=== PATIENT | female | born 1945 | race Caucasian/White ===

== ENCOUNTER 2017-08-07 05:56 | Inpatient (IN) | payer OTHER ==
[2017-08-04 11:14] LABS: Basophils # (auto) 0.1 uL; Basophils % (auto) 0.8 % (0.0-2.0); Eosinophils # (auto) 0.1 uL; Eosinophils % (auto) 1.1 % (0.0-7.0); Hematocrit 39.2 % (36.0-46.0); Hemoglobin 12.8 g/dL (12.2-16.2); Lymphocytes # (auto) 1.6 uL; Lymphocytes % (auto) 20.6 % (10.0-50.0); Mean Corpuscular Hemoglobin 31.3 pg (28.0-32.0); Mean Corpuscular Hgb Conc. 32.7 g/dL (32.0-36.0); Mean Corpuscular Volume 95.5 fL (80.0-100.0); Monocytes # (auto) 0.7 uL; Monocytes % (auto) 9.4 % (0.0-12.0); Neutrophils # (auto) 5.3 uL; Neutrophils % (auto) 68.1 % (37.0-80.0); Nucleated Red Blood Cells % 0.1 %; Platelet Count (auto) 259 10^3/uL (140-450); Red Blood Cells 4.11 10^6/uL (4.0-5.20); Red Cell Distribution Width 14.4 % (11.8-14.3); White Blood Cell 7.8 10^3/uL (4.4-10.8)
[2017-08-04 11:28] LABS: INR 0.94 (0.9-1.15); Partial Thromboplastin Time 28.7 sec (22.64-33.71); Prothrombin Time 10.2 sec (9.37-12.3)
[2017-08-04 11:39] LABS: Albumin 3.7 g/dL (3.4-5.0); BUN/Creatinine Ratio 23.3; Bilirubin, Total 0.3 mg/dL (0.2-1.0); Calcium 9.1 mg/dL (8.5-10.1); Potassium 4.2 mmol/L (3.5-5.1); Total Protein 7.8 g/dL (6.4-8.2)
[2017-08-04 12:07] LABS: Urine Bacteria NONE SEEN /hpf (None Seen); Urine Blood Negative /uL (Negative); Urine Specific Gravity 1.023 (1.001-1.035); Urine WBC 5 /hpf (0 - 5)
[~2017-08-07] VITALS: Ht 180.3 cm; Wt 125.2 kg
[~2017-08-07 05:56] MED LIST: AMLO5TAB2 PO; ASPI81CH43 PO; BACL10TA PO; GABA300C10 PO; HYDR-531 PO; IBUP600T27 PO; LEVO125T7 PO; LISI40TA PO; METO50TA7 PO; SIMV80TA73 PO
[2017-08-07] MEDS ORDERED: BACITRACIN INJ 50000 UNIT VIAL ONE (06:34)
[2017-08-07] MEDS ORDERED: ceFAZolin 1GM/50ML 50 ML IV ONE (06:39)
[2017-08-07] MEDS ORDERED: LIDOCAINE 1% HCL (LOCAL ANESTH.) INJ 20ML MDV ONE (07:33)
[2017-08-07] MEDS ORDERED: ROPIVACAINE 0.5% (5MG/ML) 20ML AMPULE IJ ONE (07:33)
[2017-08-07] MEDS ORDERED: SUCCINYLCHOLINE CHLORIDE 20 MG/ML 10ML VIAL IV ONE (07:33)
[2017-08-07] MEDS ORDERED: LIDOCAINE W/ EPINEPHRINE 2% INJ 20ML VIAL ONE (07:33)
[2017-08-07] MEDS ORDERED: ETOMIDATE (2MG/ML) 20ML VIAL IV ONE (07:39)
[2017-08-07] MEDS ORDERED: ROCURONIUM 10MG/ML 10ML VIAL IV ONE (07:41)
[2017-08-07] MEDS ORDERED: METOCLOPRAMIDE HCL 5MG/ml INJ 2ml VIAL ONE (07:44)
[2017-08-07] MEDS ORDERED: MIDAZOLAM HCL 1MG/1ML-2 ML VIAL ONE (07:44)
[2017-08-07] MEDS ORDERED: fentaNYL CITRATE 100 MCG/2 ML VL ONE (08:07)
[2017-08-07] MEDS ORDERED: ESMOLOL HCL 10 ML IV ONE (08:08)
[2017-08-07] MEDS ORDERED: ceFAZolin 1GM VL ONE (08:14)
[2017-08-07] MEDS ORDERED: ePHEDrine SULFATE 50 MG/ML AMP IV PRN (08:30)
[2017-08-07] MEDS ORDERED: NALOXONE HCL 0.4 MG/ML VIAL IV PRN (08:30)
[2017-08-07] MEDS ORDERED: HYDROmorphone HCL 2 MG/ML VL IV PRN ×3 (08:30→17:45)
[2017-08-07] MEDS ORDERED: hydrALAZINE HCL 20 MG/ML VL IV PRN (08:30)
[2017-08-07] MEDS ORDERED: ONDANSETRON HCL 4 MG/2 ML VIAL IV ONE (08:30)
[2017-08-07] MEDS ORDERED: KETOROLAC TROMETH 30 MG/ML 1ML VIAL ONE (08:49)
[2017-08-07] MEDS ORDERED: GLYCOPYRROLATE 0.2 MG/ML 1ML VIAL ONE (09:27)
[2017-08-07] MEDS ORDERED: NEOSTIGMINE 1 MG/ML INJ (10mg/10ML VIAL) ONE (09:28)
[2017-08-07] MEDS: HYDROmorphone HCL 2 MG/ML VL IV PRN ×4 (09:57→20:40)
[2017-08-07] MEDS: LACTATED RINGER'S 1,000 ML IV SCH ×2 (09:58→20:35)
[2017-08-07] MEDS: ONDANSETRON HCL 4 MG/2 ML VIAL IV PRN (09:59)
[2017-08-07] MEDS ORDERED: NITROGLYCERIN 0.4 MG SL TAB SL PRN (10:00)
[2017-08-07] MEDS: ceFAZolin 1GM/50ML 50 ML IV SCH ×2 (13:29→18:18)
[2017-08-07] MEDS: DOCUSATE SOD 100 MG CAP PO SCH ×2 (13:30→21:37)
[2017-08-07] MEDS: oxyCODONE ER 10 MG TAB PO SCH ×2 (13:30→21:49)
[2017-08-07] MEDS: ENOXAPARIN SOD 30 MG/0.3 ML SYRINGE SC SCH ×2 (13:31→21:49)
[2017-08-07 22:00] VITALS: BP 98/56
[2017-08-08] MEDS: ceFAZolin 1GM/50ML 50 ML IV SCH
[2017-08-08] MEDS: HYDROmorphone HCL 2 MG/ML VL IV PRN ×5 (00:14→17:36)
[2017-08-08] MEDS: ONDANSETRON HCL 4 MG/2 ML VIAL IV PRN ×5 (00:23→20:00)
[2017-08-08 05:03] VITALS: BP 119/83
[2017-08-08] MEDS: LACTATED RINGER'S 1,000 ML IV SCH ×2 (05:51→15:58)
[2017-08-08 07:29] LABS: Basophils # (auto) 0 uL; Basophils % (auto) 0.1 % (0.0-2.0); Eosinophils # (auto) 0 uL; Hematocrit 28.2 % (36.0-46.0); Hemoglobin 9.5 g/dL (12.2-16.2); Lymphocytes # (auto) 0.7 uL; Lymphocytes % (auto) 7.5 % (10.0-50.0); Mean Corpuscular Hemoglobin 31.9 pg (28.0-32.0); Mean Corpuscular Hgb Conc. 33.6 g/dL (32.0-36.0); Monocytes # (auto) 1.2 uL; Monocytes % (auto) 12.7 % (0.0-12.0); Neutrophils # (auto) 7.5 uL; Neutrophils % (auto) 79.7 % (37.0-80.0); Platelet Count (auto) 187 10^3/uL (140-450); Red Blood Cells 2.97 10^6/uL (4.0-5.20); Red Cell Distribution Width 14.1 % (11.8-14.3); White Blood Cell 9.4 10^3/uL (4.4-10.8)
[2017-08-08 07:51] LABS: BUN/Creatinine Ratio 18.8; Bilirubin, Total 0.6 mg/dL (0.2-1.0); Calcium 8.3 mg/dL (8.5-10.1); Potassium 4.7 mmol/L (3.5-5.1); Total Protein 6.4 g/dL (6.4-8.2)
[2017-08-08 08:00] VITALS: BP 109/94
[2017-08-08] MEDS: DOCUSATE SOD 100 MG CAP PO SCH ×2 (08:41→21:39)
[2017-08-08] MEDS: oxyCODONE ER 10 MG TAB PO SCH ×2 (08:41→21:39)
[2017-08-08] MEDS: ENOXAPARIN SOD 30 MG/0.3 ML SYRINGE SC SCH ×2 (08:41→21:40)
[2017-08-08 09:00] VITALS: BP 109/44
[2017-08-08 12:00] VITALS: BP 152/48
[2017-08-08] MEDS: HYDROcodone-ACET 10/325MG TAB PO PRN (13:42)
[2017-08-08 16:57] VITALS: BP 152/69
[2017-08-08] MEDS ORDERED: METOPROLOL SUCCINATE XL 50 MG TAB PO ONE (18:30)
[2017-08-08] MEDS ORDERED: amLODIPine BESYLATE 5 MG TAB PO ONE (18:30)
[2017-08-08] MEDS ORDERED: LISINOPRIL 20 MG TAB PO ONE (18:30)
[2017-08-08] MEDS ORDERED: FAMOTIDINE 20 MG TAB ONE (18:55)
[2017-08-08] MEDS: FAMOTIDINE 20 MG TAB PO SCH (18:56)
[2017-08-08] MEDS: ATORVASTATIN 20 MG TAB PO SCH (21:39)
[2017-08-08 21:41] VITALS: BP 146/78
[2017-08-09] MEDS ORDERED: PROMETHAZINE HCL 25 MG/ML 1ML IV ONE (00:15)
[2017-08-09] MEDS: LACTATED RINGER'S 1,000 ML IV SCH ×3 (01:58→21:51)
[2017-08-09] MEDS ORDERED: HYDROmorphone HCL 2 MG/ML VL ONE (03:52)
[2017-08-09] MEDS: ONDANSETRON HCL 4 MG/2 ML VIAL IV PRN (03:57)
[2017-08-09] MEDS: HYDROmorphone HCL 2 MG/ML VL IV PRN (03:57)
[2017-08-09 05:01] VITALS: BP 116/51
[2017-08-09] MEDS: LEVOTHYROXINE SODIUM 50 MCG TAB PO SCH (06:27)
[2017-08-09 07:55] LABS: BUN/Creatinine Ratio 17.3; Calcium 8.8 mg/dL (8.5-10.1); Potassium 4.5 mmol/L (3.5-5.1)
[2017-08-09 08:00] VITALS: BP 109/44
[2017-08-09] MEDS: FAMOTIDINE 20 MG TAB PO SCH (08:28)
[2017-08-09] MEDS: DOCUSATE SOD 100 MG CAP PO SCH ×2 (08:29→21:42)
[2017-08-09] MEDS: ENOXAPARIN SOD 30 MG/0.3 ML SYRINGE SC SCH ×2 (08:29→21:43)
[2017-08-09 09:05] VITALS: BP 111/64
[2017-08-09 09:17] LABS: Hematocrit 27.5 % (36.0-46.0); Hemoglobin 8.9 g/dL (12.2-16.2)
[2017-08-09] MEDS: oxyCODONE ER 10 MG TAB PO SCH ×2 (09:42→21:43)
[2017-08-09] MEDS: amLODIPine BESYLATE 5 MG TAB PO SCH (09:43)
[2017-08-09] MEDS: METOPROLOL SUCCINATE XL 50 MG TAB PO SCH (09:45)
[2017-08-09] MEDS: LISINOPRIL 20 MG TAB PO SCH (09:46)
[2017-08-09] MEDS: HYDROcodone-ACET 10/325MG TAB PO PRN ×2 (10:39→20:09)
[2017-08-09 13:04] VITALS: BP 94/51
[2017-08-09] MEDS: PROMETHAZINE HCL 25 MG/ML 1ML IV PRN (15:24)
[2017-08-09 17:22] VITALS: BP 123/55
[2017-08-09] MEDS: ATORVASTATIN 20 MG TAB PO SCH (21:42)
[2017-08-09 22:51] VITALS: BP 109/49
[2017-08-10 04:57] VITALS: BP 107/57
[2017-08-10] MEDS: LEVOTHYROXINE SODIUM 50 MCG TAB PO SCH (06:21)
[2017-08-10] MEDS: HYDROcodone-ACET 10/325MG TAB PO PRN ×3 (07:58→15:52)
[2017-08-10 08:00] VITALS: BP 116/56
[2017-08-10] MEDS: LISINOPRIL 20 MG TAB PO SCH (10:00)
[2017-08-10] MEDS: amLODIPine BESYLATE 5 MG TAB PO SCH (10:28)
[2017-08-10] MEDS: DOCUSATE SOD 100 MG CAP PO SCH ×2 (10:28→21:55)
[2017-08-10] MEDS: FAMOTIDINE 20 MG TAB PO SCH (10:29)
[2017-08-10] MEDS: oxyCODONE ER 10 MG TAB PO SCH ×2 (10:29→21:55)
[2017-08-10] MEDS: ENOXAPARIN SOD 30 MG/0.3 ML SYRINGE SC SCH ×2 (10:29→21:54)
[2017-08-10] MEDS: METOPROLOL SUCCINATE XL 50 MG TAB PO SCH (10:29)
[2017-08-10] MEDS: PROMETHAZINE HCL 25 MG/ML 1ML IV PRN (10:50)
[2017-08-10 10:54] LABS: Hemoglobin 8.2 g/dL (12.2-16.2)
[2017-08-10 10:57] LABS: Hematocrit 24.1 % (36.0-46.0)
[2017-08-10 13:00] VITALS: BP 111/62
[2017-08-10 16:53] VITALS: BP 102/55
[2017-08-10] MEDS: ATORVASTATIN 20 MG TAB PO SCH (21:55)
[2017-08-10 22:00] VITALS: BP 104/46
[2017-08-11] VITALS (7 sets, daily range): BP systolic 111–132; BP diastolic 40–63
[2017-08-11] MEDS: HYDROcodone-ACET 10/325MG TAB PO PRN ×5 (03:51→18:45)
[2017-08-11] MEDS: LEVOTHYROXINE SODIUM 50 MCG TAB PO SCH (06:19)
[2017-08-11] MEDS: METOPROLOL SUCCINATE XL 50 MG TAB PO SCH (09:28)
[2017-08-11] MEDS: oxyCODONE ER 10 MG TAB PO SCH ×2 (09:28→22:08)
[2017-08-11] MEDS: FAMOTIDINE 20 MG TAB PO SCH (09:28)
[2017-08-11] MEDS: LISINOPRIL 20 MG TAB PO SCH (09:29)
[2017-08-11] MEDS: ENOXAPARIN SOD 30 MG/0.3 ML SYRINGE SC SCH ×2 (09:29→22:09)
[2017-08-11] MEDS: ASPirin 81 mg TAB PO SCH (09:29)
[2017-08-11] MEDS: DOCUSATE SOD 100 MG CAP PO SCH ×2 (09:29→22:10)
[2017-08-11] MEDS: amLODIPine BESYLATE 5 MG TAB PO SCH (09:30)
[2017-08-11] MEDS: ATORVASTATIN 20 MG TAB PO SCH (22:09)
[2017-08-12 04:59] VITALS: BP 154/79
[2017-08-12] MEDS: HYDROcodone-ACET 10/325MG TAB PO PRN ×5 (05:01→18:53)
[2017-08-12] MEDS: LEVOTHYROXINE SODIUM 50 MCG TAB PO SCH (06:30)
[2017-08-12 09:00] VITALS: BP 147/68
[2017-08-12] MEDS: ENOXAPARIN SOD 30 MG/0.3 ML SYRINGE SC SCH ×2 (09:12→21:14)
[2017-08-12] MEDS: METOPROLOL SUCCINATE XL 50 MG TAB PO SCH (09:13)
[2017-08-12] MEDS: DOCUSATE SOD 100 MG CAP PO SCH ×2 (09:14→21:14)
[2017-08-12] MEDS: LISINOPRIL 20 MG TAB PO SCH (09:14)
[2017-08-12] MEDS: FAMOTIDINE 20 MG TAB PO SCH (09:15)
[2017-08-12] MEDS: ASPirin 81 mg TAB PO SCH (09:15)
[2017-08-12] MEDS: oxyCODONE ER 10 MG TAB PO SCH ×2 (09:15→21:14)
[2017-08-12] MEDS: amLODIPine BESYLATE 5 MG TAB PO SCH (09:15)
[2017-08-12] MEDS ORDERED: MILK OF MAGNESIA 30ML SUSP PO ONE (12:45)
[2017-08-12] MEDS ORDERED: FLEET ENEMA(ADULT) 135 ML PR ONE (12:45)
[2017-08-12 13:00] VITALS: BP 146/72
[2017-08-12] MEDS ORDERED: BISACODYL 10 MG RECT SUPP PR ONE (15:30)
[2017-08-12 16:59] VITALS: BP 161/69
[2017-08-12] MEDS: ATORVASTATIN 20 MG TAB PO SCH (21:14)
[2017-08-12 22:00] VITALS: BP 141/55
[2017-08-13 05:00] VITALS: BP 116/74
[2017-08-13] MEDS: LEVOTHYROXINE SODIUM 50 MCG TAB PO SCH (06:13)
[2017-08-13] MEDS: HYDROcodone-ACET 10/325MG TAB PO PRN ×2 (08:52→18:36)
[2017-08-13 10:06] VITALS: BP 163/76
[2017-08-13] MEDS: DOCUSATE SOD 100 MG CAP PO SCH ×2 (10:42→21:11)
[2017-08-13] MEDS: ASPirin 81 mg TAB PO SCH (10:42)
[2017-08-13] MEDS: amLODIPine BESYLATE 5 MG TAB PO SCH (10:43)
[2017-08-13] MEDS: LISINOPRIL 20 MG TAB PO SCH (10:43)
[2017-08-13] MEDS: MILK OF MAGNESIA 30ML SUSP PO SCH (10:44)
[2017-08-13] MEDS: METOPROLOL SUCCINATE XL 50 MG TAB PO SCH (10:44)
[2017-08-13] MEDS: oxyCODONE ER 10 MG TAB PO SCH ×2 (10:44→21:11)
[2017-08-13] MEDS: FAMOTIDINE 20 MG TAB PO SCH (10:44)
[2017-08-13] MEDS: ENOXAPARIN SOD 30 MG/0.3 ML SYRINGE SC SCH ×2 (10:44→21:10)
[2017-08-13 12:30] VITALS: BP 161/72
[2017-08-13 16:52] VITALS: BP 150/63
[2017-08-13] MEDS: ATORVASTATIN 20 MG TAB PO SCH (21:10)
[2017-08-13 22:00] VITALS: BP 123/54
[2017-08-14] MEDS: HYDROcodone-ACET 10/325MG TAB PO PRN ×4 (02:13→19:49)
[2017-08-14 05:05] VITALS: BP 140/50
[2017-08-14] MEDS: LEVOTHYROXINE SODIUM 50 MCG TAB PO SCH (06:09)
[2017-08-14 08:00] VITALS: BP 137/60
[2017-08-14 09:00] VITALS: BP 137/60
[2017-08-14] MEDS: METOPROLOL SUCCINATE XL 50 MG TAB PO SCH (10:10)
[2017-08-14] MEDS: MILK OF MAGNESIA 30ML SUSP PO SCH (10:10)
[2017-08-14] MEDS: DOCUSATE SOD 100 MG CAP PO SCH ×2 (10:10→21:21)
[2017-08-14] MEDS: ENOXAPARIN SOD 30 MG/0.3 ML SYRINGE SC SCH ×2 (10:11→21:21)
[2017-08-14] MEDS: LISINOPRIL 20 MG TAB PO SCH (10:11)
[2017-08-14] MEDS: ASPirin 81 mg TAB PO SCH (10:11)
[2017-08-14] MEDS: FAMOTIDINE 20 MG TAB PO SCH (10:11)
[2017-08-14] MEDS: oxyCODONE ER 10 MG TAB PO SCH ×2 (10:12→21:21)
[2017-08-14] MEDS: amLODIPine BESYLATE 5 MG TAB PO SCH (10:12)
[2017-08-14 13:43] VITALS: BP 141/58
[2017-08-14 17:02] VITALS: BP 152/66
[2017-08-14] MEDS: ATORVASTATIN 20 MG TAB PO SCH (21:21)
[2017-08-14 22:43] VITALS: BP 132/60
[2017-08-15] MEDS: LEVOTHYROXINE SODIUM 50 MCG TAB PO SCH (06:13)
[2017-08-15] MEDS: HYDROcodone-ACET 10/325MG TAB PO PRN ×2 (06:14→13:59)
[2017-08-15 06:20] VITALS: BP 159/78
[2017-08-15 08:00] VITALS: BP 93/51
[2017-08-15 09:00] VITALS: BP 93/51
[2017-08-15] MEDS: MILK OF MAGNESIA 30ML SUSP PO SCH (09:46)
[2017-08-15] MEDS: DOCUSATE SOD 100 MG CAP PO SCH ×2 (09:47→21:31)
[2017-08-15] MEDS: FAMOTIDINE 20 MG TAB PO SCH (09:47)
[2017-08-15] MEDS: ASPirin 81 mg TAB PO SCH (09:47)
[2017-08-15] MEDS: oxyCODONE ER 10 MG TAB PO SCH ×2 (09:49→21:31)
[2017-08-15] MEDS: ENOXAPARIN SOD 30 MG/0.3 ML SYRINGE SC SCH ×2 (09:49→21:31)
[2017-08-15] MEDS: amLODIPine BESYLATE 5 MG TAB PO SCH (09:55)
[2017-08-15] MEDS: METOPROLOL SUCCINATE XL 50 MG TAB PO SCH (09:55)
[2017-08-15] MEDS: LISINOPRIL 20 MG TAB PO SCH (09:56)
[2017-08-15 13:00] VITALS: BP 105/85
[2017-08-15 17:00] VITALS: BP 145/52
[2017-08-15] MEDS: ATORVASTATIN 20 MG TAB PO SCH (21:31)
[2017-08-15 22:00] VITALS: BP 143/67
[2017-08-16 05:00] VITALS: BP 143/68
[2017-08-16] MEDS: LEVOTHYROXINE SODIUM 50 MCG TAB PO SCH (06:30)
[2017-08-16 08:00] VITALS: BP 149/71
[2017-08-16 09:00] VITALS: BP 149/71
[2017-08-16] MEDS: DOCUSATE SOD 100 MG CAP PO SCH ×2 (09:26→21:30)
[2017-08-16] MEDS: ASPirin 81 mg TAB PO SCH (09:27)
[2017-08-16] MEDS: METOPROLOL SUCCINATE XL 50 MG TAB PO SCH (09:27)
[2017-08-16] MEDS: LISINOPRIL 20 MG TAB PO SCH (09:28)
[2017-08-16] MEDS: amLODIPine BESYLATE 5 MG TAB PO SCH (09:29)
[2017-08-16] MEDS: FAMOTIDINE 20 MG TAB PO SCH (09:29)
[2017-08-16] MEDS: MILK OF MAGNESIA 30ML SUSP PO SCH (09:30)
[2017-08-16] MEDS: oxyCODONE ER 10 MG TAB PO SCH ×2 (09:30→21:31)
[2017-08-16] MEDS: ENOXAPARIN SOD 30 MG/0.3 ML SYRINGE SC SCH ×2 (09:30→21:30)
[2017-08-16] MEDS: HYDROcodone-ACET 10/325MG TAB PO PRN (11:56)
[2017-08-16 13:00] VITALS: BP 148/72
[2017-08-16 17:00] VITALS: BP 147/55
[2017-08-16 21:30] VITALS: BP 121/58
[2017-08-16] MEDS: ATORVASTATIN 20 MG TAB PO SCH (21:31)
[2017-08-17 05:00] VITALS: BP 152/67
[2017-08-17] MEDS: LEVOTHYROXINE SODIUM 50 MCG TAB PO SCH (06:24)
[2017-08-17] MEDS: HYDROcodone-ACET 10/325MG TAB PO PRN (06:26)
[2017-08-17 09:08] VITALS: BP 120/69
[2017-08-17] MEDS: DOCUSATE SOD 100 MG CAP PO SCH (09:36)
[2017-08-17] MEDS: oxyCODONE ER 10 MG TAB PO SCH (09:37)
[2017-08-17] MEDS: FAMOTIDINE 20 MG TAB PO SCH (09:38)
[2017-08-17] MEDS: LISINOPRIL 20 MG TAB PO SCH (09:38)
[2017-08-17] MEDS: METOPROLOL SUCCINATE XL 50 MG TAB PO SCH (09:39)
[2017-08-17] MEDS: amLODIPine BESYLATE 5 MG TAB PO SCH (09:40)
[2017-08-17] MEDS: ASPirin 81 mg TAB PO SCH (09:40)
[2017-08-17] MEDS: ENOXAPARIN SOD 30 MG/0.3 ML SYRINGE SC SCH (09:41)
[2017-08-17] MEDS: MILK OF MAGNESIA 30ML SUSP PO SCH (09:42)
[2017-08-17 12:33] VITALS: BP 119/69
[2017-08-17 15:16] VITALS: BP 126/56
== END 2017-08-17 16:05 | DRG 470 ==
LOC: SUR 05:56 → WEST WING 05:57 → CENTRAL 17:22
PROVIDERS: ADMIT Orthopaedic Surgery; ATTEND Orthopaedic Surgery
PROC: 0SRD0J9 Replacement of Left Knee Joint with Synthetic Substitute, Cemented, Open Approach (ICD-10-PCS; principal; 2017-08-07 07:10)
DX: M17.12 Unilateral primary osteoarthritis, left knee (principal); J44.9 Chronic obstructive pulmonary disease, unspecified; M24.562 Contracture, left knee; M24.60 Ankylosis, unspecified joint; G89.29 Other chronic pain; K59.03 Drug induced constipation; T40.605A Adverse effect of unspecified narcotics, initial encounter
CPT/HCPCS: 36415; 73562; 80048; 80053; 81001; 85014; 85018; 85025; 85610; 85730; 86850; 86900; 86901; 97110; 97116; 97163; 97530; J0330; J0690; J1885; J2001; J2250; J2405

== ENCOUNTER 2019-06-04 15:25 | Inpatient (IN) | payer OTHER ==
[~2019-06-04] VITALS: Ht 180.3 cm; Wt 111.6 kg
[~2019-06-04 15:25] MED LIST changes: +AMLO5TAB15 PO; -AMLO5TAB2 PO; +METO-6 PO; -METO50TA7 PO
[2019-06-04] MEDS ORDERED: SODIUM CHLORIDE 0.9% 1,000 ML IV ONE (15:59)
[2019-06-04] MEDS ORDERED: ONDANSETRON HCL 4 MG/2 ML VIAL IV ONE ×2 (16:00→20:30)
[2019-06-04] MEDS ORDERED: HYDROmorphone HCL 2 MG/ML VL IV ONE ×2 (16:00→20:30)
[2019-06-04 16:45] LABS: INR 1.01 (0.9-1.15); Partial Thromboplastin Time 27.3 sec (23.64-32.05)
[2019-06-04 16:48] LABS: Albumin 3.3 g/dL (3.4-5.0); Anion Gap 9 (5-15); Blood Urea Nitrogen 23 mg/dL (7-18); Carbon Dioxide 21 mmol/L (21-32); Chloride 112 mmol/L (98-107); Glucose 115 mg/dL (74-106); Potassium 3.7 mmol/L (3.5-5.1); Sodium 142 mmol/L (136-145)
[2019-06-04 16:52] LABS: Basophils # (auto) 0.1 uL; Basophils % (auto) 0.7 % (0.0-2.0); Eosinophils # (auto) 0.1 uL; Eosinophils % (auto) 1.1 % (0.0-7.0); Hemoglobin 12.4 g/dL (12.2-16.2); Lymphocytes # (auto) 1.5 uL; Lymphocytes % (auto) 17.7 % (10.0-50.0); Mean Corpuscular Hemoglobin 31.7 pg (28.0-32.0); Mean Corpuscular Hgb Conc. 33.6 g/dL (32.0-36.0); Mean Corpuscular Volume 94.3 fL (80.0-100.0); Monocytes # (auto) 0.7 uL; Monocytes % (auto) 8.6 % (0.0-12.0); Neutrophils # (auto) 6.1 uL; Neutrophils % (auto) 71.9 % (37.0-80.0); Platelet Count (auto) 261 10^3/uL (140-450); Red Blood Cells 3.93 10^6/uL (4.0-5.20); Red Cell Distribution Width 15.3 % (11.8-14.3); White Blood Cell 8.5 10^3/uL (4.4-10.8)
[2019-06-04 16:54] LABS: Alanine Aminotransferase 23 U/L (13-56); Alkaline Phosphatase 84 U/L (45-117); Aspartate Aminotransferase 17 U/L (15-37); BUN/Creatinine Ratio 20.4; Bilirubin, Total 0.2 mg/dL (0.2-1.0); GFR African American 61 mL/min; GFR Non-African American 50 mL/min
[2019-06-04 18:13] LABS: Urine Bacteria FEW /hpf (None Seen); Urine Blood Negative /uL (Negative); Urine Mucus FEW (None Seen); Urine Specific Gravity 1.018 (1.001-1.035); Urine WBC 1 /hpf (0 - 5)
[2019-06-04] MEDS ORDERED: HYDROcodone-ACET 7.5/325MG TAB PO ONE (18:15)
[2019-06-04] MEDS: HYDROmorphone HCL 2 MG/ML VL IV PRN ×2 (18:41→20:40)
[2019-06-04] MEDS ORDERED: HYDROcodone-ACET 5/325MG TAB PO PRN (21:00)
[2019-06-04] MEDS ORDERED: TEMAZEPAM 15 MG CAP PO PRN (21:00)
[2019-06-04] MEDS ORDERED: ACETAMINOPHEN 325 MG TAB PO PRN (21:00)
[2019-06-04] MEDS ORDERED: LORazepam 2MG/ML-1ML VIAL IV ONE (21:15)
[2019-06-04] MEDS ORDERED: ATORVASTATIN 20 MG TAB PO SCH (22:00)
[2019-06-04 22:35] VITALS: BP 146/57
[2019-06-04] MEDS: GABAPENTIN 300 MG CAP PO SCH (22:51)
[2019-06-05] MEDS: ONDANSETRON HCL 4 MG/2 ML VIAL IV PRN ×2 (02:11→08:54)
[2019-06-05] MEDS: MORPHINE SULFATE 4 MG/ML SYR/VIAL IV PRN ×2 (02:12→08:54)
--- NOTE | 2019-06-05 02:12 | NUR ---
Rounds Patient awake and alert. No S/S of distress/SOB, c/o nausea and leg pain, medicated as ordered. Will continue to monitor changes q1hr and PRN.
--- NOTE | 2019-06-05 02:36 | NUR ---
[facility] admit from ER [facility] admitted to [facility]. Patient oriented to Mel Baird, RN primary RN, unit, room, bed, and unit policies regarding patient care and visiting hours. Patient weighed by bedscale and encouraged to call if they need something. All questions and concerns addressed, patient verbalized understanding. Patient alert x4, connected to 2L NC, daughter at bedside. Note:
[2019-06-05 04:57] VITALS: BP 154/46
[2019-06-05] MEDS: GABAPENTIN 300 MG CAP PO SCH (05:25)
[2019-06-05 06:46] LABS: Basophils # (auto) 0 uL; Eosinophils # (auto) 0 uL; Hematocrit 33.7 % (36.0-46.0); Hemoglobin 11.1 g/dL (12.2-16.2); Lymphocytes # (auto) 0.7 uL; Lymphocytes % (auto) 5.6 % (10.0-50.0); Mean Corpuscular Hemoglobin 31.5 pg (28.0-32.0); Mean Corpuscular Volume 95.5 fL (80.0-100.0); Monocytes # (auto) 0.7 uL; Neutrophils # (auto) 10.7 uL; Neutrophils % (auto) 88.4 % (37.0-80.0); Platelet Count (auto) 227 10^3/uL (140-450); Red Blood Cells 3.53 10^6/uL (4.0-5.20); Red Cell Distribution Width 15.1 % (11.8-14.3); White Blood Cell 12.1 10^3/uL (4.4-10.8)
[2019-06-05] MEDS ORDERED: SIMV80TA73 PO (06:54)
[2019-06-05] MEDS ORDERED: PERCOT PO (06:54)
[2019-06-05] MEDS ORDERED: HYDR50TA15 PO (06:54)
[2019-06-05] MEDS ORDERED: ALBUAER3 IN (06:54)
[2019-06-05] MEDS ORDERED: LEVO112T4 PO (06:54)
[2019-06-05] MEDS ORDERED: TIOT17SP IN (06:54)
[2019-06-05 06:55] LABS: BUN/Creatinine Ratio 20.2; Calcium 8.6 mg/dL (8.5-10.1)
[2019-06-05] MEDS ORDERED: LEVOTHYROXINE SODIUM 50 MCG TAB PO SCH (07:00)
[2019-06-05 09:00] VITALS: BP 158/58
[2019-06-05] MEDS ORDERED: METOPROLOL SUCCINATE XL 50 MG TAB PO SCH (10:00)
[2019-06-05] MEDS ORDERED: LISINOPRIL 20 MG TAB PO SCH (10:00)
[2019-06-05] MEDS ORDERED: amLODIPine BESYLATE 5 MG TAB PO SCH (10:00)
--- NOTE | 2019-06-05 10:36 | NUR ---
TRANSFER: pt will go to [facility] A accepting MD is Dr. Reddy , phone # for report is [phone]. 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
--- NOTE | 2019-06-05 10:38 | NUR ---
Transfer: pt going to [facility]
--- NOTE | 2019-06-05 10:46 | NUR ---
Report given to Maribel REYNOLDS.
[2019-06-05 12:30] VITALS: BP 148/49
--- NOTE | 2019-06-05 12:44 | NUR ---
Discharge instructions given as ordered. Encourage to follow up with PMD (Dr. Maharaj) as instructed. All questions and concerns addressed. Patient verbalized understanding. Medication reconciliation form completed and copy given to patient. Home medications held in Pharmacy returned to patient, and needed vaccines given. Patient taken to vehicle via gurney ([facility]) with all personal belongings, accompanied by staff and family member. No distress noted at time of departure.
== END 2019-06-05 12:45 | disposition short-term general hospital (02) | DRG 183 ==
LOC: EDBD 15:25 → ER 15:40 → OVERFLOW 15:41 → WEST WING 22:20
PROVIDERS: ADMIT Nurse Practitioner; ATTEND Internal Medicine Geriatric Medicine
DX: S22.41XA Multiple fractures of ribs, right side, initial encounter for closed fracture (principal); S72.141A Displaced intertrochanteric fracture of right femur, initial encounter for closed fracture; N39.0 Urinary tract infection, site not specified; I13.0 Hypertensive heart and chronic kidney disease with heart failure and stage 1 through stage 4 chronic kidney disease, or unspecified chronic kidney disease; W01.0XXA Fall on same level from slipping, tripping and stumbling without subsequent striking against object, initial encounter; N18.2 Chronic kidney disease, stage 2 (mild); E66.9 Obesity, unspecified; E03.9 Hypothyroidism, unspecified; E78.5 Hyperlipidemia, unspecified; I50.9 Heart failure, unspecified; I25.10 Atherosclerotic heart disease of native coronary artery without angina pectoris; J44.9 Chronic obstructive pulmonary disease, unspecified; G89.29 Other chronic pain; Z68.34 Body mass index [BMI] 34.0-34.9, adult; M54.9 Dorsalgia, unspecified; Z83.3 Family history of diabetes mellitus; Y93.89 Activity, other specified; Y92.098 Other place in other non-institutional residence as the place of occurrence of the external cause; Y99.8 Other external cause status
CPT/HCPCS: 36415; 71250; 72192; 80048; 80053; 81001; 84484; 85025; 85610; 85730; 99291; G0378; J2405